=== PATIENT | female | born 1990 | race Caucasian/White ===

== ENCOUNTER 2023-05-26 17:31 | Emergency (ER) | payer MEDICAID ==
[~2023-05-26] VITALS: Ht 170.2 cm; Wt 114.0 kg
[2023-05-26 17:35] VITALS: PULSE 106; RESP 16
[2023-05-26 17:36] VITALS: BP 150/89; O2SAT 98
[2023-05-26 18:01] LABS: BASOPHILS % 0.6 % (0.0-2.0); EOSINOPHILS % 0.9 % (0.0-5.0); HEMATOCRIT. 40.2 % (36.0-48.0); HEMOGLOBIN. 13.4 g/dL (12.0-16.0); LYMPHOCYTES % 28.2 % (20.0-50.0); MEAN CORPUSCULAR HGB CONC 33.3 g/dL (31.0-37.0); MEAN CORPUSCULAR VOLUME 90.2 fL (81.0-99.0); MONOCYTES % 7.6 % (2.0-8.0); NEUTROPHILS % 62.7 % (40.0-76.0); PLATELET 244 x1000/uL (130-400); RED BLOOD CELL COUNT 4.45 mill/uL (4.2-5.4); RED CELL DISTRIBUTION WIDTH 14.2 % (11.6-14.6); WHITE BLOOD COUNT 8.1 x1000/uL (4.5-11.0)
[2023-05-26 18:12] LABS: HCG SCREEN NEGATIVE
[2023-05-26] MEDS ORDERED: ACETAMINOPHEN 325MG TABLET PO ONE (18:15)
[2023-05-26] MEDS ORDERED: FAMOTIDINE 20MG TABLET PO ONE (18:15)
[2023-05-26 18:46] VITALS: TEMP 98.5
[2023-05-26 21:41] LABS: ALANINE AMINOTRANSFERASE 15 IU/L (10-49); ALBUMIN 4.1 g/dL (3.2-4.8); ASPARTATE AMINOTRANSFERASE 17 IU/L (<34); BILIRUBIN TOTAL 0.2 mg/dL (0.1-1.0); CALCIUM 9.4 mg/dL (8.7-10.4); CARBON DIOXIDE 22 mEq/L (21-32); CHLORIDE 110 mEq/L (98-107); CREATININE 0.7 mg/dL (0.6-1.0); GLUCOSE 113 mg/dL (70-105); POTASSIUM 4.1 mEq/L (3.5-5.1); PROTEIN TOTAL 6.8 g/dL (6.0-8.3); SODIUM 141 mEq/L (136-145); UREA NITROGEN BLOOD 10 mg/dL (9-23)
[2023-05-26] MEDS ORDERED: IBUPROFEN 600MG TABLET PO ONE (21:45)
[2023-05-26] MEDS ORDERED: FAMO-135 PO (21:56)
== END 2023-05-26 22:10 | disposition home or self-care (01) ==
LOC: ER 17:44
DX: R10.9 Unspecified abdominal pain (principal); Z98.890 Other specified postprocedural states
CPT/HCPCS: 36415; 76705; 80053; 81025; 84703; 85025; 99284